=== PATIENT | male | born 1965 | race Caucasian/White ===

== ENCOUNTER 2017-02-26 18:07 | Emergency (ER) | payer MEDICAID, OTHER ==
[~2017-02-26] VITALS: Ht 172.7 cm; Wt 86.4 kg
[2017-02-26 18:39] LABS: HEMATOCRIT 47.1 % (41-53); HEMOGLOBIN 16.2 g/dL (13.5-17.5); MEAN CORPUSCULAR HEMOGLOBIN 31.5 pg (26.0-34.0); MEAN CORPUSCULAR HGB CONC 34.3 G/dL (31.0-37.0); MEAN CORPUSCULAR VOLUME 92 fL (80-100); PLATELET COUNT (AUTO) 415 K/uL (150-450); RED BLOOD CELL COUNT(AUTO) 5.12 MIL/uL (4.50-5.90); RED CELL DISTRIBUTION WIDTH 13.7 % (11.5-14.5); WHITE BLOOD COUNT (AUTO) 23.9 K/uL (4.5-11.0)
[2017-02-26 18:49] LABS: ANION GAP 3 mmol/L (8-16); CALCIUM, TOTAL 9.1 mg/dL (8.8-10.5); CARBON DIOXIDE 32 mmol/L (22-29); CHLORIDE 107 mmol/L (98-107); CREATININE 0.97 mg/dL (0.60-1.30); GLOMERULAR FILTR. RATE CALC > 60 mL/min (>60); POTASSIUM 4.3 mmol/L (3.5-5.1); SODIUM SERUM 142 mmol/L (136-145); UREA NITROGEN, BLOOD 12 mg/dL (7-18)
[2017-02-26 18:55] LABS: ALANINE AMINOTRANSFERASE 31 U/L (12-78); ALBUMIN 3.8 g/dL (3.4-5.0); ASPARTATE AMINOTRANSFERASE 29 U/L (15-37); BILIRUBIN,TOTAL 0.5 mg/dL (0.1-1.0); TOTAL PROTEIN, SERUM 8.4 g/dL (6.4-8.2)
[2017-02-26 19:00] LABS: APPEARANCE,URINE CLEAR (CLEAR); GLUCOSE, URINE (UA) NEGATIVE (NEGATIVE); KETONES,URINE NEGATIVE (NEGATIVE); LEUKOCYTE ESTERASE ,URINE NEGATIVE (NEGATIVE); OCCULT BLOOD,URINE TRACE (NEGATIVE); PH,URINE 7.5 (5.0-8.0); PROTEIN,URINE TRACE (NEGATIVE)
[2017-02-26 19:03] LABS: ADD UA MICROSCOPIC YES
[2017-02-26 19:15] LABS: BAND NEUTROPHILS % (MANUAL) 12 % (1-5); LYMPHOCYTES % (MANUAL) 19 % (22-44); METAMYELOCYTES % 1 % (0-0); TOTAL CELLS COUNTED 100
[2017-02-26 19:16] LABS: RBC MORPHOLOGY COMMENT NORMAL RBC MORPH
[2017-02-26 19:22] LABS: SQUAMOUS EPITHELIAL CELL,UR Few /LPF (None Seen); WBC,URINE None Seen /HPF (0-5)
[2017-02-26] MEDS ORDERED: HYDROmorphone 2 MG/ML SYRINGE IVP ONE (20:00)
[2017-02-26] MEDS ORDERED: BARIUM SULFATE 0.1% SUSPENSION 450 ML BOTTLE PO ONE (20:00)
[2017-02-26] MEDS ORDERED: ONDANSETRON HCL 4 MG/2 ML VIAL IVP ONE (20:00)
[2017-02-26] MEDS ORDERED: SODIUM CHLORIDE 0.9% 1,000 ML IV ONE ×3 (20:00→22:30)
[2017-02-26] MEDS ORDERED: SODIUM CHLORIDE 0.9% 100 ML ONE (21:10)
[2017-02-26] MEDS ORDERED: IOVERSOL 320 MG/ML 100 ML VIAL ONE (21:10)
[2017-02-26 21:34] VITALS: BP 191/107
[2017-02-26] MEDS ORDERED: CloNIDine HCL 0.2 MG TABLET PO ONE (21:45)
[2017-02-26] MEDS ORDERED: ACETAMINOPHEN 325 MG TABLET PO PRN (22:30)
[2017-02-26] MEDS ORDERED: 0.9% SODIUM CHLORIDE 10 ML SYRINGE IVP PRN (22:30)
[2017-02-26] MEDS ORDERED: HYDROmorphone 2 MG/ML SYRINGE IVP PRN (22:30)
[2017-02-26] MEDS ORDERED: ONDANSETRON HCL 4 MG/2 ML VIAL IVP PRN (22:30)
== END 2017-02-26 23:07 | disposition left against medical advice (07) ==
LOC: EMS 18:10
DX: K52.9 Noninfective gastroenteritis and colitis, unspecified (principal); E86.0 Dehydration; F17.210 Nicotine dependence, cigarettes, uncomplicated
CPT/HCPCS: 36415; 74177; 80053; 81001; 83690; 85025; 96361; 96374; 96375; 99285; J1170; J2405; J7030; J7050; Q9967; Z7610

== ENCOUNTER 2018-03-26 23:17 | Emergency (ER) | payer MEDICAID, OTHER ==
[~2018-03-26] VITALS: Ht 172.7 cm; Wt 86.4 kg
[2018-03-27 00:09] LABS: BASOPHILS % (AUTO) 0.7 % (0.0-2.0); EOSINOPHILS % (AUTO) 2.7 % (1.0-6.0); HEMATOCRIT 47.6 % (41-53); HEMOGLOBIN 16.5 g/dL (13.5-17.5); LYMPHOCYTES # (AUTO) 4.5 K/uL (1.0-4.8); LYMPHOCYTES % (AUTO) 23.3 % (22.0-44.0); MEAN CORPUSCULAR HEMOGLOBIN 31.9 pg (26.0-34.0); MEAN CORPUSCULAR HGB CONC 34.6 G/dL (31.0-37.0); MEAN CORPUSCULAR VOLUME 92 fL (80-100); MONOCYTES # (AUTO) 1.5 K/uL (0.1-1.0); MONOCYTES % (AUTO) 7.5 % (2.0-9.0); NEUTROPHILS # (AUTO) 12.7 K/uL (1.8-7.7); NEUTROPHILS % (AUTO) 65.8 % (40.0-70.0); PLATELET COUNT (AUTO) 386 K/uL (150-450); RED BLOOD CELL COUNT(AUTO) 5.16 MIL/uL (4.50-5.90); RED CELL DISTRIBUTION WIDTH 13.2 % (11.5-14.5)
[2018-03-27 00:14] LABS: ANION GAP 9 mmol/L (8-16); CARBON DIOXIDE 28 mmol/L (22-29); CHLORIDE 105 mmol/L (98-107); CREATININE 0.82 mg/dL (0.60-1.30); GLOMERULAR FILTR. RATE CALC > 60 mL/min (>60); GLUCOSE,RANDOM 92 mg/dL (70-110); POTASSIUM 3.6 mmol/L (3.5-5.1); SODIUM SERUM 142 mmol/L (136-145); UREA NITROGEN, BLOOD 11 mg/dL (7-18)
[2018-03-27 00:20] LABS: ALANINE AMINOTRANSFERASE 16 U/L (12-78); ALBUMIN 3.6 g/dL (3.4-5.0); ALKALINE PHOSPHATASE 86 U/L (46-116); ASPARTATE AMINOTRANSFERASE 23 U/L (15-37); BILIRUBIN,TOTAL 0.7 mg/dL (0.1-1.0); LIPASE 181 U/L (73-393)
[2018-03-27 00:30] LABS: APPEARANCE,URINE CLEAR (CLEAR); BILIRUBIN,URINE NEGATIVE (NEGATIVE); GLUCOSE, URINE (UA) NEGATIVE (NEGATIVE); KETONES,URINE NEGATIVE (NEGATIVE); LEUKOCYTE ESTERASE ,URINE NEGATIVE (NEGATIVE); NITRATE,URINE NEGATIVE (NEGATIVE); OCCULT BLOOD,URINE TRACE (NEGATIVE); PH,URINE 6.5 (5.0-8.0); PROTEIN,URINE NEGATIVE (NEGATIVE); UROBILINOGEN,URINE 0.2 mg/dL (<=1.0)
[2018-03-27 00:44] LABS: BACTERIA,URINE Few /HPF (None Seen); SQUAMOUS EPITHELIAL CELL,UR Rare /LPF (None Seen); WBC,URINE 0-2 /HPF (0-5)
[2018-03-27] MEDS ORDERED: ONDANSETRON HCL 4 MG/2 ML VIAL IVP ONE (01:45)
[2018-03-27] MEDS ORDERED: BARIUM SULFATE 0.1% SUSPENSION 450 ML BOTTLE PO ONE (01:45)
[2018-03-27] MEDS ORDERED: SODIUM CHLORIDE 0.9% 2,000 ML IV ONE (01:45)
[2018-03-27] MEDS ORDERED: FentaNYL CITRATE-PF 100 MCG/2 ML VIAL IVP ONE ×3 (01:45→05:30)
[2018-03-27] MEDS ORDERED: SODIUM CHLORIDE 0.9% 100 ML ONE (02:29)
[2018-03-27] MEDS ORDERED: IOVERSOL 350 MG/ML 100 ML VIAL ONE (02:29)
[2018-03-27] MEDS ORDERED: CefTRIAXone 1 GM/DEXTROSE 50 ML IV ONE (04:15)
[2018-03-27 05:42] VITALS: BP 215/115
== END 2018-03-27 06:01 | disposition home or self-care (01) ==
LOC: EMS 23:21
DX: K52.9 Noninfective gastroenteritis and colitis, unspecified (principal); F17.210 Nicotine dependence, cigarettes, uncomplicated
CPT/HCPCS: 36415; 74177; 80053; 81001; 83690; 85025; 93005; 96361; 96365; 96375; 96376; 99284; 99406; J0696; J2405; J3010; J7030; J7050; Q9967

== ENCOUNTER 2019-03-25 12:07 | Emergency (ER) | payer OTHER ==
[~2019-03-25] VITALS: Ht 170.2 cm; Wt 84.1 kg
[2019-03-25] MEDS ORDERED: AMLO2.5T4 PO (12:14)
[2019-03-25] MEDS ORDERED: LISI1TAB29 PO (12:14)
[2019-03-25] MEDS ORDERED: LISI-661 PO (12:14)
[2019-03-25] MEDS ORDERED: SODIUM CHLORIDE 0.9% 1,000 ML IV ONE (13:00)
[2019-03-25] MEDS ORDERED: METOCLOPRAMIDE HCL 5 MG/ML 2 ML VIAL IVP ONE (13:00)
[2019-03-25] MEDS ORDERED: ACETAMINOPHEN 500 MG TABLET PO ONE (13:00)
[2019-03-25] MEDS ORDERED: DiphenhydrAMINE HCL 50 MG/ML VIAL IVP ONE (13:00)
[2019-03-25 13:02] LABS: EOSINOPHILS % (AUTO) 3.2 % (1.0-6.0); HEMATOCRIT 46.2 % (41-53); HEMOGLOBIN 15.7 g/dL (13.5-17.5); LYMPHOCYTES # (AUTO) 3.7 K/uL (1.0-4.8); LYMPHOCYTES % (AUTO) 24.2 % (22.0-44.0); MEAN CORPUSCULAR HEMOGLOBIN 31.2 pg (26.0-34.0); MEAN CORPUSCULAR VOLUME 92 fL (80-100); MONOCYTES # (AUTO) 1.1 K/uL (0.1-1.0); MONOCYTES % (AUTO) 6.9 % (2.0-9.0); NEUTROPHILS % (AUTO) 64.7 % (40.0-70.0); PLATELET COUNT (AUTO) 442 K/uL (150-450); RED BLOOD CELL COUNT(AUTO) 5.04 MIL/uL (4.50-5.90); RED CELL DISTRIBUTION WIDTH 13.1 % (11.5-14.5)
[2019-03-25 13:28] LABS: B-TYPE NATRIURETIC PEPTIDE 35 pg/mL (0-100)
[2019-03-25 13:31] LABS: ANION GAP 7 mmol/L (8-16); CALCIUM, TOTAL 9.1 mg/dL (8.8-10.5); CARBON DIOXIDE 28 mmol/L (22-29); CHLORIDE 101 mmol/L (98-107); CREATININE 1.09 mg/dL (0.60-1.30); GLOMERULAR FILTR. RATE CALC > 60 mL/min (>60); GLUCOSE,RANDOM 119 mg/dL (70-110); POTASSIUM 3.2 mmol/L (3.5-5.1); SODIUM SERUM 136 mmol/L (136-145)
[2019-03-25 13:35] LABS: APPEARANCE,URINE CLEAR (CLEAR); BILIRUBIN,URINE NEGATIVE (NEGATIVE); GLUCOSE, URINE (UA) NEGATIVE (NEGATIVE); KETONES,URINE NEGATIVE (NEGATIVE); LEUKOCYTE ESTERASE ,URINE NEGATIVE (NEGATIVE); NITRATE,URINE NEGATIVE (NEGATIVE); OCCULT BLOOD,URINE NEGATIVE (NEGATIVE); PH,URINE 6.5 (5.0-8.0); PROTEIN,URINE NEGATIVE (NEGATIVE)
[2019-03-25] MEDS ORDERED: POTASSIUM CHLORIDE 20 MEQ ER TABLET PO ONE (13:45)
[2019-03-25 13:50] LABS: ALANINE AMINOTRANSFERASE 26 U/L (12-78); ALBUMIN 3.8 g/dL (3.4-5.0); ALKALINE PHOSPHATASE 82 U/L (46-116); ASPARTATE AMINOTRANSFERASE 20 U/L (15-37); BILIRUBIN,TOTAL 0.5 mg/dL (0.1-1.0); CREATINE KINASE, TOTAL ONLY 97 U/L (39-308); TOTAL PROTEIN, SERUM 8.2 g/dL (6.4-8.2); UREA NITROGEN, BLOOD 13 mg/dL (7-18)
[2019-03-25 15:14] VITALS: BP 158/87
== END 2019-03-25 15:23 | disposition home or self-care (01) ==
LOC: EMS 12:10
DX: G43.109 Migraine with aura, not intractable, without status migrainosus (principal); F17.210 Nicotine dependence, cigarettes, uncomplicated; F12.90 Cannabis use, unspecified, uncomplicated; Z90.89 Acquired absence of other organs; Z79.899 Other long term (current) drug therapy
CPT/HCPCS: 36415; 70450; 80053; 81003; 82550; 83880; 84484; 85025; 93005; 96361; 96374; 96375; 99285; 99406; J1200; J2765; J7030

== ENCOUNTER 2020-03-18 13:42 | Emergency (ER) | payer OTHER ==
[~2020-03-18] VITALS: Ht 172.7 cm; Wt 90.9 kg
[~2020-03-18 13:42] MED LIST: AMLO2.5T96 PO; LISI1TAB29 PO
[2020-03-18 13:56] VITALS: BP 159/102
[2020-03-18] MEDS ORDERED: KETOROLAC TROMETHAMINE 30 MG/ML VIAL IM ONE (14:30)
== END 2020-03-18 14:47 | disposition home or self-care (01) ==
LOC: EMS 13:42
DX: K08.89 Other specified disorders of teeth and supporting structures (principal); F17.210 Nicotine dependence, cigarettes, uncomplicated; F12.90 Cannabis use, unspecified, uncomplicated
CPT/HCPCS: 96372; 99283; J1885

== ENCOUNTER 2020-12-28 04:20 | Inpatient (IN) | payer OTHER ==
[~2020-12-28] VITALS: Ht 170.2 cm; Wt 97.8 kg
[2020-12-28] MEDS ORDERED: SODIUM CHLORIDE 0.9% 1,000 ML IV ONE ×4 (04:45→06:45)
[2020-12-28] MEDS ORDERED: MORPHINE SULFATE 4 MG/ML SYRINGE IVP ONE (04:45)
[2020-12-28] MEDS ORDERED: SODIUM CHLORIDE 0.9% 100 ML ONE (05:12)
[2020-12-28] MEDS ORDERED: IOHEXOL 350 MG/ML 150 ML VIAL ONE (05:12)
[2020-12-28 05:13] LABS: BASOPHILS % (AUTO) 0.7 % (0.0-2.0); EOSINOPHILS % (AUTO) 3.3 % (1.0-6.0); HEMATOCRIT 42.6 % (41-53); HEMOGLOBIN 14.6 g/dL (13.5-17.5); LYMPHOCYTES # (AUTO) 4.7 K/uL (1.0-4.8); LYMPHOCYTES % (AUTO) 20.5 % (22.0-44.0); MEAN CORPUSCULAR HEMOGLOBIN 31.6 pg (26.0-34.0); MEAN CORPUSCULAR HGB CONC 34.3 G/dL (31.0-37.0); MEAN CORPUSCULAR VOLUME 92 fL (80-100); MONOCYTES # (AUTO) 1.5 K/uL (0.1-1.0); MONOCYTES % (AUTO) 6.4 % (2.0-9.0); NEUTROPHILS # (AUTO) 15.8 K/uL (1.8-7.7); NEUTROPHILS % (AUTO) 69.1 % (40.0-70.0); PLATELET COUNT (AUTO) 363 K/uL (150-450); RED BLOOD CELL COUNT(AUTO) 4.62 MIL/uL (4.50-5.90); RED CELL DISTRIBUTION WIDTH 12.9 % (11.5-14.5)
[2020-12-28 05:23] LABS: GLUCOSE,POINT OF CARE 152 MG/DL (70-110)
[2020-12-28 05:26] LABS: ANION GAP 11 mmol/L (8-16); CALCIUM, TOTAL 8.5 mg/dL (8.8-10.5); CARBON DIOXIDE 26 mmol/L (22-29); CHLORIDE 104 mmol/L (98-107); CREATININE 1.37 mg/dL (0.60-1.30); GLOMERULAR FILTR. RATE CALC 54 mL/min (>60); GLUCOSE,RANDOM 156 mg/dL (70-110); POTASSIUM 3.7 mmol/L (3.5-5.1); SODIUM SERUM 141 mmol/L (136-145); UREA NITROGEN, BLOOD 19 mg/dL (7-18)
[2020-12-28 05:34] LABS: LACTIC ACID 1.7 mmol/L (0.4-2.0)
[2020-12-28] MEDS ORDERED: HYDROmorphone 2 MG/ML VIAL IVP ONE (05:45)
[2020-12-28] MEDS ORDERED: SODIUM CHLORIDE 0.9% 3,000 ML IV ONE (05:45)
[2020-12-28 05:47] LABS: B-TYPE NATRIURETIC PEPTIDE 18 pg/mL (0-100)
[2020-12-28] MEDS ORDERED: HYDROmorphone 2 MG/ML VIAL ONE (05:49)
[2020-12-28 05:51] LABS: ALANINE AMINOTRANSFERASE 30 U/L (12-78); ALBUMIN 3.3 g/dL (3.4-5.0); ALKALINE PHOSPHATASE 65 U/L (46-116); ASPARTATE AMINOTRANSFERASE 24 U/L (15-37); BILIRUBIN,TOTAL 0.4 mg/dL (0.1-1.0); CREATINE KINASE, TOTAL ONLY 96 U/L (39-308); TOTAL PROTEIN, SERUM 7.2 g/dL (6.4-8.2)
[2020-12-28 05:52] LABS: LIPASE 19098 U/L (73-393)
[2020-12-28 06:07] LABS: APPEARANCE,URINE CLEAR (CLEAR); BILIRUBIN,URINE NEGATIVE (NEGATIVE); GLUCOSE, URINE (UA) NEGATIVE (NEGATIVE); KETONES,URINE NEGATIVE (NEGATIVE); LEUKOCYTE ESTERASE ,URINE NEGATIVE (NEGATIVE); NITRATE,URINE NEGATIVE (NEGATIVE); OCCULT BLOOD,URINE TRACE (NEGATIVE); PH,URINE 6.5 (5.0-8.0); PROTEIN,URINE TRACE (NEGATIVE); UROBILINOGEN,URINE 0.2 mg/dL (<=1.0)
[2020-12-28 06:11] LABS: BACTERIA,URINE Rare /HPF (None Seen); RBC,URINE 0-2 /HPF (0-2); WBC,URINE 0-2 /HPF (0-5)
[2020-12-28 06:13] LABS: AMPHET/METH SCREEN,URINE NEGATIVE (NEGATIVE); BARBITURATE SCREEN, URINE NEGATIVE (NEGATIVE); BENZODIAZEPINES SCREEN,URINE NEGATIVE (NEGATIVE); CANNABINOID SCREEN,URINE NEGATIVE (NEGATIVE); COCAINE SCREEN,URINE NEGATIVE (NEGATIVE); METHADONE SCREEN, URINE NEGATIVE (NEGATIVE); OPIATE SCREEN,URINE POSITIVE (NEGATIVE)
[2020-12-28 06:14] LABS: PHENCYCLIDINE SCREEN,URINE NEGATIVE (NEGATIVE)
[2020-12-28] MEDS ORDERED: ONDANSETRON HCL 4 MG/2 ML VIAL IVP PRN ×2 (06:45→07:45)
[2020-12-28 07:13] LABS: COVID AG,FIA SOURCE NASOPHARYNGEAL
[2020-12-28] MEDS ORDERED: BISACODYL 10 MG RECTAL RECTAL SUPPOSITORY PR PRN (07:45)
[2020-12-28] MEDS ORDERED: 0.9% SODIUM CHLORIDE 10 ML SYRINGE IVP PRN (07:45)
[2020-12-28] MEDS ORDERED: ACETAMINOPHEN 325 MG TABLET PO PRN (07:45)
[2020-12-28] MEDS: PANTOPRAZOLE SODIUM 40 MG/VIAL IVP SCH (08:42)
[2020-12-28] MEDS: SODIUM CHLORIDE 0.9% 1,000 ML IV SCH ×3 (08:42→23:05)
[2020-12-28] MEDS: MORPHINE SULFATE 4 MG/ML SYRINGE IVP PRN ×4 (08:44→22:19)
[2020-12-28 09:42] LABS: FREE T4 (FREE THYROXINE) 1.06 ng/dL (0.76-1.46)
[2020-12-28] MEDS: HYDROmorphone 2 MG/ML VIAL IVP PRN ×2 (12:15→19:59)
[2020-12-28] MEDS: HydrALAZINE HCL 20 MG/ML VIAL IVP PRN ×2 (12:16→19:59)
[2020-12-28 17:28] VITALS: BP 182/89
[2020-12-28 18:21] VITALS: BP 147/77
[2020-12-28 19:21] VITALS: BP 170/82
[2020-12-28 23:44] VITALS: BP 150/76
[2020-12-29] MEDS: MORPHINE SULFATE 4 MG/ML SYRINGE IVP PRN (03:03)
[2020-12-29 04:00] VITALS: BP 146/78
[2020-12-29] MEDS: SODIUM CHLORIDE 0.9% 1,000 ML IV SCH (05:38)
[2020-12-29 06:55] LABS: BASOPHILS % (AUTO) 0.3 % (0.0-2.0); EOSINOPHILS % (AUTO) 0.1 % (1.0-6.0); HEMOGLOBIN 14.7 g/dL (13.5-17.5); LYMPHOCYTES # (AUTO) 2.7 K/uL (1.0-4.8); LYMPHOCYTES % (AUTO) 8.6 % (22.0-44.0); MEAN CORPUSCULAR HEMOGLOBIN 31.9 pg (26.0-34.0); MEAN CORPUSCULAR HGB CONC 34.1 G/dL (31.0-37.0); MEAN CORPUSCULAR VOLUME 94 fL (80-100); MONOCYTES % (AUTO) 6.6 % (2.0-9.0); NEUTROPHILS # (AUTO) 26.2 K/uL (1.8-7.7); NEUTROPHILS % (AUTO) 84.4 % (40.0-70.0); PLATELET COUNT (AUTO) 296 K/uL (150-450)
[2020-12-29 07:23] LABS: ALANINE AMINOTRANSFERASE 25 U/L (12-78); ALKALINE PHOSPHATASE 65 U/L (46-116); ANION GAP 13 mmol/L (8-16); ASPARTATE AMINOTRANSFERASE 22 U/L (15-37); BILIRUBIN,TOTAL 1.3 mg/dL (0.1-1.0); CALCIUM, TOTAL 7.8 mg/dL (8.8-10.5); CARBON DIOXIDE 25 mmol/L (22-29); CHLORIDE 106 mmol/L (98-107); CHOL/HDL RATIO 5.2 (4.2-7.3); CHOLESTEROL 171 mg/dL (131-200); CREATININE 0.93 mg/dL (0.60-1.30); GLOMERULAR FILTR. RATE CALC > 60 mL/min (>60); GLUCOSE,RANDOM 102 mg/dL (70-110); HDL CHOLESTEROL 33 mg/dL (40-60); LDL CHOL (CALC.) 120 mg/dL (0-130); SODIUM SERUM 144 mmol/L (136-145); TOTAL PROTEIN, SERUM 6.8 g/dL (6.4-8.2); TRIGLYCERIDES 90 mg/dL (15-150); UREA NITROGEN, BLOOD 13 mg/dL (7-18)
[2020-12-29 07:26] LABS: POTASSIUM 2.9 mmol/L (3.5-5.1)
[2020-12-29] MEDS ORDERED: SODIUM CHLORIDE 0.9% 250 ML IV ONE (08:10)
[2020-12-29] MEDS: PANTOPRAZOLE SODIUM 40 MG/VIAL IVP SCH (08:13)
[2020-12-29] MEDS: HydrALAZINE HCL 20 MG/ML VIAL IVP PRN (08:13)
[2020-12-29] MEDS: HYDROmorphone 2 MG/ML VIAL IVP PRN ×3 (08:13→19:08)
[2020-12-29] MEDS: POTASSIUM CHL 10 MEQ/WATER 50 ML IV PRN ×4 (08:25→14:27)
[2020-12-29 08:44] VITALS: BP 174/81
[2020-12-29] MEDS ORDERED: MAGNESIUM SULFATE 3 GM in DEXTROSE 5%-WATER 100 ML IV ONE (10:45)
[2020-12-29] MEDS: RINGERS SOLUTION,LACTATED 1,000 ML IV SCH ×3 (11:06→23:34)
[2020-12-29] MEDS: IPRATROPIUM BROMIDE 0.5 MG/2.5 ML NEB SOLUTION NEB PRN ×2 (11:13→18:39)
[2020-12-29] MEDS: ALBUTEROL SULFATE 2.5 MG/0.5 ML NEB SOLUTION NEB PRN ×2 (11:13→18:39)
[2020-12-29 11:23] LABS: LIPASE 1401 U/L (73-393)
[2020-12-29 11:26] VITALS: BP 153/83
[2020-12-29] MEDS: LEVOTHYROXINE SODIUM 100 MCG VIAL IVP SCH (12:17)
[2020-12-29] MEDS: POTASSIUM CHLORIDE 20 MEQ ER TABLET PO PRN (16:03)
[2020-12-29 16:22] VITALS: BP 166/87
[2020-12-29 19:29] VITALS: BP 150/71
[2020-12-30] VITALS (7 sets, daily range): BP systolic 135–175; BP diastolic 67–89
[2020-12-30] MEDS ORDERED: 0.9% SODIUM CHLORIDE 5 ML NEB SOLUTION NEB ONE (01:32)
[2020-12-30] MEDS: IPRATROPIUM BROMIDE 0.5 MG/2.5 ML NEB SOLUTION NEB PRN (01:33)
[2020-12-30] MEDS: ALBUTEROL SULFATE 2.5 MG/0.5 ML NEB SOLUTION NEB PRN (01:33)
[2020-12-30] MEDS ORDERED: SODIUM CHLORIDE 3% 15 ML NEB SOLUTION NEB ONE ×2 (02:07→02:15)
[2020-12-30] MEDS: HYDROmorphone 2 MG/ML VIAL IVP PRN ×4 (04:08→20:27)
[2020-12-30] MEDS: RINGERS SOLUTION,LACTATED 1,000 ML IV SCH ×2 (05:55→12:39)
[2020-12-30 06:38] LABS: BASOPHILS % (AUTO) 0.2 % (0.0-2.0); EOSINOPHILS % (AUTO) 0.2 % (1.0-6.0); HEMATOCRIT 37.1 % (41-53); HEMOGLOBIN 12.7 g/dL (13.5-17.5); LYMPHOCYTES % (AUTO) 6.8 % (22.0-44.0); MEAN CORPUSCULAR HEMOGLOBIN 31.8 pg (26.0-34.0); MEAN CORPUSCULAR HGB CONC 34.3 G/dL (31.0-37.0); MEAN CORPUSCULAR VOLUME 93 fL (80-100); MONOCYTES # (AUTO) 1.8 K/uL (0.1-1.0); MONOCYTES % (AUTO) 5.9 % (2.0-9.0); NEUTROPHILS # (AUTO) 25.8 K/uL (1.8-7.7); PLATELET COUNT (AUTO) 262 K/uL (150-450); RED BLOOD CELL COUNT(AUTO) 4.01 MIL/uL (4.50-5.90); RED CELL DISTRIBUTION WIDTH 13.3 % (11.5-14.5)
[2020-12-30 07:06] LABS: NEUTROPHILS % (AUTO) 86.9 % (40.0-70.0)
[2020-12-30 07:39] LABS: ALANINE AMINOTRANSFERASE 22 U/L (12-78); ALBUMIN 2.7 g/dL (3.4-5.0); ALKALINE PHOSPHATASE 60 U/L (46-116); ANION GAP 11 mmol/L (8-16); ASPARTATE AMINOTRANSFERASE 37 U/L (15-37); BILIRUBIN,TOTAL 1.4 mg/dL (0.1-1.0); CALCIUM, TOTAL 7.9 mg/dL (8.8-10.5); CARBON DIOXIDE 23 mmol/L (22-29); CHLORIDE 104 mmol/L (98-107); CREATININE 0.88 mg/dL (0.60-1.30); GLOMERULAR FILTR. RATE CALC > 60 mL/min (>60); GLUCOSE,RANDOM 128 mg/dL (70-110); LIPASE 258 U/L (73-393); POTASSIUM 3.2 mmol/L (3.5-5.1); SODIUM SERUM 138 mmol/L (136-145); TOTAL PROTEIN, SERUM 6.7 g/dL (6.4-8.2); UREA NITROGEN, BLOOD 7 mg/dL (7-18)
[2020-12-30] MEDS: PANTOPRAZOLE SODIUM 40 MG/VIAL IVP SCH (08:17)
[2020-12-30] MEDS: LEVOTHYROXINE SODIUM 100 MCG VIAL IVP SCH (08:22)
[2020-12-30 10:06] LABS: B-TYPE NATRIURETIC PEPTIDE 117 pg/mL (0-100)
[2020-12-30] MEDS: POTASSIUM CHLORIDE 20 MEQ ER TABLET PO PRN ×2 (10:23→19:48)
[2020-12-30] MEDS ORDERED: PB/HYOSCY/ATR/SCOP/LIDO/MAALOX 55 ML BOTTLE PO ONE (20:45)
[2020-12-30] MEDS: FAMOTIDINE 10 MG/ML 2 ML VIAL IVP SCH (22:16)
[2020-12-31] MEDS: HydrALAZINE HCL 20 MG/ML VIAL IVP PRN ×2 (00:04→18:30)
[2020-12-31] MEDS: ALBUTEROL SULFATE 2.5 MG/0.5 ML NEB SOLUTION NEB PRN (02:13)
[2020-12-31] MEDS: IPRATROPIUM BROMIDE 0.5 MG/2.5 ML NEB SOLUTION NEB PRN (02:13)
[2020-12-31] MEDS ORDERED: SODIUM CHLORIDE 0.65% 44 ML NASAL SPRAY NASAL PRN (03:30)
[2020-12-31 03:35] VITALS: BP 159/79
[2020-12-31] MEDS: HYDROmorphone 2 MG/ML VIAL IVP PRN ×3 (04:03→22:23)
[2020-12-31 05:54] LABS: BASOPHILS % (AUTO) 0.3 % (0.0-2.0); EOSINOPHILS % (AUTO) 0.3 % (1.0-6.0); HEMATOCRIT 37.9 % (41-53); LYMPHOCYTES # (AUTO) 1.6 K/uL (1.0-4.8); LYMPHOCYTES % (AUTO) 6.7 % (22.0-44.0); MEAN CORPUSCULAR HEMOGLOBIN 32.1 pg (26.0-34.0); MEAN CORPUSCULAR HGB CONC 34.4 G/dL (31.0-37.0); MEAN CORPUSCULAR VOLUME 93 fL (80-100); MONOCYTES # (AUTO) 1.7 K/uL (0.1-1.0); MONOCYTES % (AUTO) 7.1 % (2.0-9.0); NEUTROPHILS # (AUTO) 20.1 K/uL (1.8-7.7); PLATELET COUNT (AUTO) 311 K/uL (150-450); RED BLOOD CELL COUNT(AUTO) 4.05 MIL/uL (4.50-5.90)
[2020-12-31 06:59] LABS: ANION GAP 13 mmol/L (8-16); CARBON DIOXIDE 23 mmol/L (22-29); CHLORIDE 103 mmol/L (98-107); CREATININE 0.84 mg/dL (0.60-1.30); GLUCOSE,RANDOM 131 mg/dL (70-110); POTASSIUM 3.8 mmol/L (3.5-5.1); SODIUM SERUM 139 mmol/L (136-145); UREA NITROGEN, BLOOD 6 mg/dL (7-18)
[2020-12-31 07:00] LABS: ALANINE AMINOTRANSFERASE 31 U/L (12-78); ALBUMIN 2.7 g/dL (3.4-5.0); ALKALINE PHOSPHATASE 92 U/L (46-116); ASPARTATE AMINOTRANSFERASE 41 U/L (15-37); BILIRUBIN,TOTAL 1.5 mg/dL (0.1-1.0); CALCIUM, TOTAL 8.2 mg/dL (8.8-10.5); GLOMERULAR FILTR. RATE CALC > 60 mL/min (>60); LIPASE 703 U/L (73-393); TOTAL PROTEIN, SERUM 7.1 g/dL (6.4-8.2)
[2020-12-31 07:02] LABS: NEUTROPHILS % (AUTO) 85.6 % (40.0-70.0)
[2020-12-31 08:11] VITALS: BP 150/70
[2020-12-31] MEDS: LEVOTHYROXINE SODIUM 100 MCG VIAL IVP SCH (09:54)
[2020-12-31] MEDS: FAMOTIDINE 10 MG/ML 2 ML VIAL IVP SCH ×2 (09:55→20:43)
[2020-12-31] MEDS: PANTOPRAZOLE SODIUM 40 MG/VIAL IVP SCH (10:39)
[2020-12-31] MEDS: AMOX TR/POT CLAV 875 MG/125 MG TABLET PO SCH ×2 (11:43→20:42)
[2020-12-31 12:04] VITALS: BP 150/79
[2020-12-31 15:30] VITALS: BP 146/79
[2020-12-31 20:11] VITALS: BP 140/72
[2020-12-31] MEDS: IPRATROPIUM BROMIDE 0.5 MG/2.5 ML NEB SOLUTION NEB SCH (20:18)
[2020-12-31] MEDS: ALBUTEROL SULFATE 2.5 MG/0.5 ML NEB SOLUTION NEB SCH (20:18)
[2020-12-31 23:10] VITALS: BP 147/67
[2021-01-01] MEDS: ALBUTEROL SULFATE 2.5 MG/0.5 ML NEB SOLUTION NEB SCH ×4 (02:30→20:29)
[2021-01-01] MEDS: IPRATROPIUM BROMIDE 0.5 MG/2.5 ML NEB SOLUTION NEB SCH ×4 (02:31→20:29)
[2021-01-01] MEDS: HYDROmorphone 2 MG/ML VIAL IVP PRN ×2 (02:34→06:14)
[2021-01-01 05:24] VITALS: BP 145/66
[2021-01-01 05:36] LABS: BASOPHILS % (AUTO) 0.3 % (0.0-2.0); HEMATOCRIT 37.3 % (41-53); HEMOGLOBIN 12.8 g/dL (13.5-17.5); LYMPHOCYTES # (AUTO) 2.2 K/uL (1.0-4.8); LYMPHOCYTES % (AUTO) 10.1 % (22.0-44.0); MEAN CORPUSCULAR HEMOGLOBIN 31.9 pg (26.0-34.0); MEAN CORPUSCULAR HGB CONC 34.2 G/dL (31.0-37.0); MEAN CORPUSCULAR VOLUME 94 fL (80-100); MONOCYTES # (AUTO) 2.2 K/uL (0.1-1.0); MONOCYTES % (AUTO) 9.9 % (2.0-9.0); NEUTROPHILS # (AUTO) 17.2 K/uL (1.8-7.7); NEUTROPHILS % (AUTO) 78.7 % (40.0-70.0); PLATELET COUNT (AUTO) 317 K/uL (150-450); RED BLOOD CELL COUNT(AUTO) 3.99 MIL/uL (4.50-5.90); RED CELL DISTRIBUTION WIDTH 13.4 % (11.5-14.5)
[2021-01-01 06:51] LABS: ALANINE AMINOTRANSFERASE 43 U/L (12-78); ALBUMIN 2.5 g/dL (3.4-5.0); ALKALINE PHOSPHATASE 97 U/L (46-116); ANION GAP 11 mmol/L (8-16); ASPARTATE AMINOTRANSFERASE 47 U/L (15-37); BILIRUBIN,TOTAL 1.8 mg/dL (0.1-1.0); CALCIUM, TOTAL 8.3 mg/dL (8.8-10.5); CARBON DIOXIDE 22 mmol/L (22-29); CHLORIDE 102 mmol/L (98-107); CREATININE 0.87 mg/dL (0.60-1.30); GLOMERULAR FILTR. RATE CALC > 60 mL/min (>60); GLUCOSE,RANDOM 124 mg/dL (70-110); LIPASE 107 U/L (73-393); SODIUM SERUM 135 mmol/L (136-145); TOTAL PROTEIN, SERUM 6.9 g/dL (6.4-8.2); UREA NITROGEN, BLOOD 10 mg/dL (7-18)
[2021-01-01 07:22] VITALS: BP 155/71
[2021-01-01] MEDS: PANTOPRAZOLE SODIUM 40 MG/VIAL IVP SCH (08:24)
[2021-01-01] MEDS: AMOX TR/POT CLAV 875 MG/125 MG TABLET PO SCH ×2 (08:24→20:21)
[2021-01-01] MEDS: FAMOTIDINE 10 MG/ML 2 ML VIAL IVP SCH ×2 (08:25→20:25)
[2021-01-01] MEDS: LEVOTHYROXINE SODIUM 100 MCG VIAL IVP SCH (08:25)
[2021-01-01 10:59] VITALS: BP 162/101
[2021-01-01 15:15] VITALS: BP 152/73
[2021-01-01] MEDS ORDERED: HYDROmorphone HCL 2 MG TABLET PO SCH (16:00)
[2021-01-01 19:18] VITALS: BP 147/81
[2021-01-01] MEDS: LISINOPRIL 5 MG TABLET PO SCH (20:22)
[2021-01-01] MEDS: HYDROmorphone HCL 2 MG TABLET PO PRN (20:23)
[2021-01-01 23:15] VITALS: BP 153/80
[2021-01-02] MEDS: HYDROmorphone HCL 2 MG TABLET PO PRN (00:23)
[2021-01-02] MEDS: IPRATROPIUM BROMIDE 0.5 MG/2.5 ML NEB SOLUTION NEB SCH ×2 (02:06→07:38)
[2021-01-02] MEDS: ALBUTEROL SULFATE 2.5 MG/0.5 ML NEB SOLUTION NEB SCH ×2 (02:06→07:38)
[2021-01-02 04:23] VITALS: BP 138/71
[2021-01-02 06:04] LABS: BASOPHILS % (AUTO) 0.6 % (0.0-2.0); EOSINOPHILS % (AUTO) 1.5 % (1.0-6.0); HEMATOCRIT 37.8 % (41-53); HEMOGLOBIN 12.8 g/dL (13.5-17.5); LYMPHOCYTES # (AUTO) 2.4 K/uL (1.0-4.8); MEAN CORPUSCULAR HEMOGLOBIN 31.8 pg (26.0-34.0); MEAN CORPUSCULAR HGB CONC 33.9 G/dL (31.0-37.0); MEAN CORPUSCULAR VOLUME 94 fL (80-100); MONOCYTES # (AUTO) 2.7 K/uL (0.1-1.0); MONOCYTES % (AUTO) 11.6 % (2.0-9.0); NEUTROPHILS % (AUTO) 76.3 % (40.0-70.0); PLATELET COUNT (AUTO) 382 K/uL (150-450); RED BLOOD CELL COUNT(AUTO) 4.02 MIL/uL (4.50-5.90); RED CELL DISTRIBUTION WIDTH 13.5 % (11.5-14.5)
[2021-01-02 06:19] LABS: ALANINE AMINOTRANSFERASE 47 U/L (12-78); ALBUMIN 2.5 g/dL (3.4-5.0); ALKALINE PHOSPHATASE 89 U/L (46-116); ANION GAP 10 mmol/L (8-16); ASPARTATE AMINOTRANSFERASE 47 U/L (15-37); BILIRUBIN,TOTAL 1.6 mg/dL (0.1-1.0); CALCIUM, TOTAL 8.5 mg/dL (8.8-10.5); CARBON DIOXIDE 22 mmol/L (22-29); CHLORIDE 101 mmol/L (98-107); CREATININE 0.86 mg/dL (0.60-1.30); GLOMERULAR FILTR. RATE CALC > 60 mL/min (>60); GLUCOSE,RANDOM 114 mg/dL (70-110); LIPASE 125 U/L (73-393); POTASSIUM 4.1 mmol/L (3.5-5.1); SODIUM SERUM 133 mmol/L (136-145); TOTAL PROTEIN, SERUM 7.3 g/dL (6.4-8.2); UREA NITROGEN, BLOOD 13 mg/dL (7-18)
[2021-01-02 07:49] VITALS: BP 138/79
[2021-01-02] MEDS ORDERED: LEVOTHYROXINE SODIUM 25 MCG TABLET PO SCH (08:30)
[2021-01-02] MEDS ORDERED: PANTOPRAZOLE SODIUM 40 MG DR TABLET PO SCH (09:00)
[2021-01-02] MEDS ORDERED: FAMOTIDINE 20 MG TABLET PO SCH (09:00)
[2021-01-02] MEDS: AMOX TR/POT CLAV 875 MG/125 MG TABLET PO SCH (09:11)
[2021-01-02] MEDS: LISINOPRIL 5 MG TABLET PO SCH (09:11)
[2021-01-02] MEDS ORDERED: NICOTINE 14 MG/24 HOUR PATCH TD SCH (10:30)
[2021-01-02] MEDS ORDERED: FUROSEMIDE 40 MG/4 ML VIAL IVP ONE (12:30)
[2021-01-02] MEDS ORDERED: FUROSEMIDE 40 MG TABLET PO ONE (12:30)
[2021-01-02] MEDS ORDERED: AMOX1TAB16 PO (12:34)
[2021-01-02] MEDS ORDERED: LEVO25TA9 PO (12:34)
[2021-01-02] MEDS ORDERED: NICO-703 TD (12:37)
== END 2021-01-02 13:45 | disposition home or self-care (01) | DRG 282 ==
LOC: EDUNIT# 04:20 → EMS 04:23 → 5S 16:13
PROVIDERS: ADMIT Internal Medicine; ATTEND Internal Medicine
DX: K85.90 Acute pancreatitis without necrosis or infection, unspecified (principal); N17.9 Acute kidney failure, unspecified; I11.0 Hypertensive heart disease with heart failure; R65.10 Systemic inflammatory response syndrome (SIRS) of non-infectious origin without acute organ dysfunction; I50.32 Chronic diastolic (congestive) heart failure; J01.90 Acute sinusitis, unspecified; F12.90 Cannabis use, unspecified, uncomplicated; E87.6 Hypokalemia; E83.42 Hypomagnesemia; E03.9 Hypothyroidism, unspecified; Z20.822 Contact with and (suspected) exposure to COVID-19; F17.210 Nicotine dependence, cigarettes, uncomplicated; Z90.49 Acquired absence of other specified parts of digestive tract; Z82.49 Family history of ischemic heart disease and other diseases of the circulatory system
CPT/HCPCS: 71045; 71275; 74175; 74181; 76705; 80053; 80061; 81001; 82550; 82962; 83605; 83690; 83735; 83880; 84132; 84145; 84439; 84443; 84484; 85025; 85610; 85730; 86850; 86900; 86901; 87040; 93005; 93306; 94640; 99291; C9113; G0480; J0360; J1170; J2270; J3475; J3480; J3490; J7030; J7050; J7060; J7120; Q9967; 36415-L1; 36415-TC; J7613